=== PATIENT | female | born 1955 | race Caucasian/White ===

== ENCOUNTER 2017-04-29 11:51 | Emergency (ER) | payer MEDICAID ==
[~2017-04-29] VITALS: Ht 152.4 cm; Wt 62.0 kg
[2017-04-29] MEDS ORDERED: IBUPROFEN 800MG TABLET PO ONE (15:15)
[2017-04-29 15:49] VITALS: BP 125/63
== END 2017-04-29 15:49 | disposition home or self-care (01) ==
LOC: ER 15:28
DX: S46.911A Strain of unspecified muscle, fascia and tendon at shoulder and upper arm level, right arm, initial encounter (principal); Z87.891 Personal history of nicotine dependence; X58.XXXA Exposure to other specified factors, initial encounter; Y93.89 Activity, other specified; Y92.89 Other specified places as the place of occurrence of the external cause; Y99.8 Other external cause status
CPT/HCPCS: 99283; A4565

== ENCOUNTER 2018-03-03 14:03 | Emergency (ER) | payer MEDICAID ==
[~2018-03-03] VITALS: Ht 152.4 cm; Wt 64.0 kg
[2018-03-03 23:17] VITALS: BP 138/76
== END 2018-03-04 00:05 | disposition home or self-care (01) ==
LOC: ER 14:42
DX: J20.9 Acute bronchitis, unspecified (principal); Z87.891 Personal history of nicotine dependence; Z90.49 Acquired absence of other specified parts of digestive tract; Z90.710 Acquired absence of both cervix and uterus
CPT/HCPCS: 71045; 99283

== ENCOUNTER 2021-09-04 19:34 | Emergency (ER) | payer OTHER, MEDICARE ==
[~2021-09-04] VITALS: Ht 149.9 cm; Wt 71.0 kg
[2021-09-04] MEDS ORDERED: IBUPROFEN 800MG TABLET PO ONE (22:15)
[2021-09-04] MEDS ORDERED: BACITRACIN ZINC OINT UDPKT TOP ONE (22:15)
[2021-09-04] MEDS ORDERED: LIDOCAINE HCL/PF 1% 10 MG/ML 5ML VIAL INFIL ONE (22:15)
[2021-09-04 22:22] VITALS: BP 120/86
== END 2021-09-05 01:02 | disposition home or self-care (01) ==
LOC: ER 19:34
DX: S61.011A Laceration without foreign body of right thumb without damage to nail, initial encounter (principal); I10 Essential (primary) hypertension; W23.0XXA Caught, crushed, jammed, or pinched between moving objects, initial encounter; Y93.89 Activity, other specified; Y92.89 Other specified places as the place of occurrence of the external cause; Y99.0 Civilian activity done for income or pay; Z90.710 Acquired absence of both cervix and uterus; Z90.49 Acquired absence of other specified parts of digestive tract
CPT/HCPCS: 12002; 73140; 99283; J3490